=== PATIENT | female | born 1990 | race African-American/Black ===

== ENCOUNTER 2016-10-29 16:42 | Emergency (ER) | payer OTHER ==
[~2016-10-29] VITALS: Ht 165.1 cm; Wt 83.9 kg
[~2016-10-29 16:42] MED LIST: AMOXICILLIN 50500 MG PO; APAP500 PO; CIPRO500 MG PO; CLARITIN10 MG PO; COLACE 100 MG100 MG PO; DERMOPLAST SPRA56 ML; FLONASE 0.05%50 MCG NASAL; HYDROCODON-ACE1 EAC7 PO; HYDROCORTISONE30 G9 TOP; IBUPROFEN 800800 M1 PO; IBUPROFEN 800800 MG PO; IRON325 PO; MACROBID 100 M100 M3 PO; MOBIC15 MG PO; NAPHCON-A EYE D15 ML OP; NAPROSYN500 MG PO; NORCO 5-325 TA1 EACH PO; OXYCODONE HCL 55 MG PO; PERCOCET PO; PRENATAL TABLE1 EAC3 PO; PROAIR HFA8.5 GM; PROVENTIL HFA6.7 G1 INH; TESSALON PERLE100 MG PO; TUCKS MEDICATE1 EAC1; ZPAK PO
[2016-10-29 18:12] LABS: URINE BILIRUBIN NEGATIVE (Negative); URINE BLOOD NEGATIVE (Negative); URINE COLOR YELLOW; URINE GLUCOSE-RANDOM* NEGATIVE (Negative); URINE KETONES NEGATIVE (Negative); URINE LEUKOCYTES-REFLEX NEGATIVE (Negative); URINE PROTEIN (DIPSTICK) NEGATIVE (Negative); URINE UROBILINOGEN 0.2 E.U./dl (0.2-1.0)
== END 2016-10-29 18:52 | disposition home or self-care (01) ==
LOC: ER 16:42
PROVIDERS: Nurse Practitioner Family
DX: N76.0 Acute vaginitis (principal); Z20.2 Contact with and (suspected) exposure to infections with a predominantly sexual mode of transmission; J45.909 Unspecified asthma, uncomplicated; F17.210 Nicotine dependence, cigarettes, uncomplicated; F10.99 Alcohol use, unspecified with unspecified alcohol-induced disorder

== ENCOUNTER 2016-11-27 17:45 | Emergency (ER) | payer OTHER ==
[~2016-11-27] VITALS: Ht 165.1 cm; Wt 86.2 kg
[2016-11-27 18:13] LABS: URINE BILIRUBIN NEGATIVE (Negative); URINE BLOOD NEGATIVE (Negative); URINE COLOR YELLOW; URINE GLUCOSE-RANDOM* NEGATIVE (Negative); URINE KETONES TRACE (Negative); URINE NITRITE NEGATIVE (Negative); URINE PROTEIN (DIPSTICK) NEGATIVE (Negative); URINE SPECIFIC GRAVITY >= 1.030 (1.003-1.035); URINE UROBILINOGEN 0.2 E.U./dl (0.2-1.0)
[2016-11-29 21:09] LABS: CHLAMYDIA TRACHOMATIS-PCR Negative (Negative); NEISSERIA GONORRHEA-PCR Negative (Negative)
== END 2016-11-27 20:17 | disposition home or self-care (01) ==
LOC: ER 17:45
PROVIDERS: Nurse Practitioner Family
DX: O26.891 Other specified pregnancy related conditions, first trimester (principal); R10.9 Unspecified abdominal pain; Z3A.01 Less than 8 weeks gestation of pregnancy; F17.210 Nicotine dependence, cigarettes, uncomplicated; J45.909 Unspecified asthma, uncomplicated

== ENCOUNTER 2016-12-06 19:50 | Emergency (ER) | payer OTHER ==
[~2016-12-06] VITALS: Ht 162.6 cm; Wt 86.2 kg
[2016-12-06] MEDS ORDERED: ACCUNEB SO1.25 MG/1 INH (19:53)
[2016-12-06 21:07] LABS: URINE BILIRUBIN NEGATIVE (Negative); URINE BLOOD NEGATIVE (Negative); URINE COLOR YELLOW; URINE GLUCOSE-RANDOM* NEGATIVE (Negative); URINE KETONES NEGATIVE (Negative); URINE NITRITE NEGATIVE (Negative); URINE PROTEIN (DIPSTICK) NEGATIVE (Negative); URINE UROBILINOGEN 0.2 E.U./dl (0.2-1.0)
[2016-12-06 21:33] LABS: ABSOLUTE NEUTROPHILS 8.8 thou/uL (1.4-8.2); BASOPHILS 0.7 % (0.0-2.0); EOSINOPHILS 2.3 % (0.0-3.0); HEMOGLOBIN 13.2 gm/dL (12.0-15.0); LYMPHOCYTES 27.7 % (24.0-44.0); MCH 30.6 pg (26.0-34.0); MCHC 33.8 g/dL (28.0-37.0); MCV 90.4 fL (80.0-100.0); MONOCYTES 7.2 % (1.0-8.0); PLATELET COUNT 230 thou/uL (150-400); POLYS 62.1 % (36.0-66.0); RBC 4.31 mil/uL (4.20-5.00); RDW 13.6 % (10.5-14.5); WBC 14.2 thou/uL (4.0-11.0)
[2016-12-06 21:34] LABS: MANUAL DIFF NO
[2016-12-06 21:40] LABS: CALCIUM 9.2 mg/dL (8.5-10.1); CREATININE 0.6 mg/dL (0.6-1.0); POTASSIUM 3.8 mmol/L (3.5-5.1)
== END 2016-12-06 22:56 | disposition home or self-care (01) ==
LOC: ER 19:50
PROVIDERS: Nurse Practitioner
DX: O26.891 Other specified pregnancy related conditions, first trimester (principal); R53.1 Weakness; J45.909 Unspecified asthma, uncomplicated; Z87.891 Personal history of nicotine dependence; Z3A.01 Less than 8 weeks gestation of pregnancy

== ENCOUNTER 2018-06-06 15:39 | Emergency (ER) | payer OTHER ==
[~2018-06-06] VITALS: Ht 162.6 cm; Wt 86.6 kg
[~2018-06-06 15:39] MED LIST changes: +ACCUNEB SO1.25 MG/1 INH
[2018-06-06] MEDS ORDERED: CLARITIN10 MG PO (15:44)
[2018-06-06] MEDS ORDERED: ADVAIR 500-501 EACH INH (15:44)
[2018-06-06] MEDS ORDERED: VENTOLIN HFA 1818 GM INH (15:44)
[2018-06-06] MEDS ORDERED: NAPROSYN500 MG PO (16:41)
[2018-06-06 17:16] VITALS: BP 129/78
== END 2018-06-06 17:17 | disposition home or self-care (01) ==
LOC: ER 15:39
DX: J04.0 Acute laryngitis (principal); J45.909 Unspecified asthma, uncomplicated; F17.210 Nicotine dependence, cigarettes, uncomplicated

== ENCOUNTER 2019-10-04 17:26 | Emergency (ER) | payer OTHER ==
[~2019-10-04] VITALS: Ht 165.1 cm; Wt 87.1 kg
[~2019-10-04 17:26] MED LIST changes: +ADVAIR 500-501 EACH INH; +VENTOLIN HFA 1818 GM INH
[2019-10-04] MEDS ORDERED: PROMETH-CODEIN 65 ML PO (18:10)
[2019-10-04 18:40] VITALS: BP 126/88
== END 2019-10-04 18:40 | disposition home or self-care (01) ==
LOC: ER 17:26
DX: U07.1 COVID-19 (principal); J45.909 Unspecified asthma, uncomplicated; Z79.899 Other long term (current) drug therapy; Z87.891 Personal history of nicotine dependence

== ENCOUNTER 2019-12-09 00:08 | Emergency (ER) | payer OTHER ==
[~2019-12-09] VITALS: Ht 154.9 cm; Wt 86.6 kg
[~2019-12-09 00:08] MED LIST changes: +PROMETH-CODEIN 65 ML PO
[2019-12-09] MEDS ORDERED: VENTOLIN HFA 1818 GM INH (01:17)
[2019-12-09] MEDS ORDERED: PREDNISONE50 MG PO (01:17)
[2019-12-09 01:25] VITALS: BP 132/92
== END 2019-12-09 01:27 | disposition home or self-care (01) ==
LOC: ER 00:08
DX: J45.901 Unspecified asthma with (acute) exacerbation (principal); Z79.899 Other long term (current) drug therapy; Z87.891 Personal history of nicotine dependence

== ENCOUNTER 2021-03-13 20:20 | Emergency (ER) | payer OTHER ==
[~2021-03-13] VITALS: Ht 165.1 cm; Wt 93.9 kg
[~2021-03-13 20:20] MED LIST changes: +PREDNISONE50 MG PO
[2021-03-13 20:22] VITALS: BP 145/80
[2021-03-13 20:40] LABS: URINE BILIRUBIN NEGATIVE (Negative); URINE BLOOD NEGATIVE (Negative); URINE CLARITY SL CLOUDY; URINE COLOR YELLOW; URINE GLUCOSE-RANDOM* NEGATIVE (Negative); URINE KETONES NEGATIVE (Negative); URINE LEUKOCYTES-REFLEX NEGATIVE (Negative); URINE NITRITE-REFLEX NEGATIVE (Negative); URINE PROTEIN (DIPSTICK) NEGATIVE (Negative); URINE SPECIFIC GRAVITY 1.025 (1.005-1.035)
[2021-03-13 21:44] LABS: CALCIUM 8.5 mg/dL (8.5-10.1); CREATININE 0.7 mg/dL (0.6-1.0); POTASSIUM 3.8 mmol/L (3.5-5.1)
== END 2021-03-13 22:21 | disposition home or self-care (01) ==
LOC: ER 20:20
PROVIDERS: Emergency Medicine
DX: R20.2 Paresthesia of skin (principal); J45.909 Unspecified asthma, uncomplicated; Z87.891 Personal history of nicotine dependence